=== PATIENT | male | born 1960 | race Caucasian/White ===

== ENCOUNTER 2023-06-10 11:08 | Day surgery (SDC) | payer MEDICAID ==
[~2023-06-10] VITALS: Ht 177.8 cm; Wt 109.7 kg
[2023-06-10 11:30] VITALS: BP 127/80
[2023-06-10] MEDS ORDERED: NO HOME MEDS (12:31)
[2023-06-10 12:35] VITALS: BP 124/89
[2023-06-10 12:45] VITALS: BP 145/74
== END 2023-06-10 12:50 | disposition home or self-care (01) ==
LOC: SSTAY O 11:08
PROVIDERS: ATTEND Radiology Vascular & Interventional Radiology
DX: Z45.2 Encounter for adjustment and management of vascular access device (principal); C83.38 Diffuse large B-cell lymphoma, lymph nodes of multiple sites; Z88.0 Allergy status to penicillin
CPT/HCPCS: 36590; J7030